=== PATIENT | female | born 1950 | race Caucasian/White ===

== ENCOUNTER 2020-01-19 06:55 | Observation (INO) ==
[~2020-01-19 06:55] MED LIST: Lactated Ringers 1000 ml BAG 1,000 ML IV SCH
[2020-01-19] MEDS ORDERED: ceFAZolin 2 GM PREMIX in ORs 2 GM/50 ML BAG ONE (07:08)
[2020-01-19] MEDS ORDERED: ROPIVACAINE 5 MG/ML 30 ML BTL (0.5%) ONE (07:18)
[2020-01-19] MEDS ORDERED: Midazolam 2 mg/2 ml VIAL 1 mg/ml 2 ml VIAL (2 mg) ONE (08:55)
[2020-01-19] MEDS ORDERED: Lidocaine 2% PF 5 ML VIAL ONE ×2 (08:56→09:11)
[2020-01-19] MEDS ORDERED: Dexmedetomidine 200 mcg/2 ml 2 ml VIAL (200 mcg) ONE (08:56)
[2020-01-19] MEDS ORDERED: fentaNYL 100 mcg/2 ml 50 MCG/ML VIAL ONE ×2 (09:10→10:17)
[2020-01-19] MEDS ORDERED: Propofol 10 MG/ML 20 ML BTL ONE (09:10)
[2020-01-19] MEDS ORDERED: Propofol 0 MG/0 ML BTL ONE (09:10)
[2020-01-19] MEDS ORDERED: Dexamethasone IV 4 MG/ML VIAL 1 ml VIAL ONE (09:47)
[2020-01-19] MEDS ORDERED: Rocuronium 50 mg VIAL 10 mg/ml 5 ml VIAL (50 mg) ONE (09:56)
[2020-01-19] MEDS ORDERED: EPHEDrine (Pressors) 50 MG/ML VIAL ONE (10:13)
[2020-01-19] MEDS ORDERED: HYDROmorphone 1 MG/1 ML SYRINGE ONE (10:18)
[2020-01-19] MEDS ORDERED: Naloxone 0.4 mg VIAL 0.4 mg/ml 1 ml VIAL IV PRN (10:23)
[2020-01-19] MEDS ORDERED: HYDROmorphone 1 MG/1 ML SYRINGE IV PRN (10:23)
[2020-01-19] MEDS ORDERED: DiMENhydriNATE IV 50 mg/ml 1 ml VIAL IV PUSH PRN (10:23)
[2020-01-19] MEDS ORDERED: oxyCODONE/Acetamin 5/325 mg TAB PO PRN (12:09)
[2020-01-19] MEDS ORDERED: diPHENhydraMINE 25 mg TAB PO PRN (12:09)
[2020-01-19] MEDS ORDERED: Ondansetron ODT 4 mg TAB 4 MG TAB PO PRN (12:09)
[2020-01-19] MEDS ORDERED: Magnesium Hydroxide LIQ 30 ML UDC PO PRN (12:09)
[2020-01-19] MEDS ORDERED: Morphine 2 MG/ML SYRINGE IV PRN (12:09)
[2020-01-19] MEDS ORDERED: Ondansetron 4 mg VIAL 2 MG/ML 2 ml VIAL IV PRN (12:09)
[2020-01-19] MEDS ORDERED: Lactulose 30 ml UDC PO PRN (12:09)
[2020-01-19] MEDS ORDERED: diPHENhydraMINE IV 50 MG/ML 1 ml VIAL (BENADRYL) IV PRN (12:09)
[2020-01-19] MEDS ORDERED: Bupivacaine 0.5% SDV PF 30ML VIAL ONE (13:11)
[2020-01-19] MEDS ORDERED: Ketamine HCL 50 mg/ml 10 ml VIAL (500 MG) ONE (13:26)
[2020-01-19] MEDS: oxyCODONE/Acetamin 5/325 mg TAB PO PRN (14:44)
[2020-01-19] MEDS: Lactated Ringers 1000 ml BAG 1,000 ML IV SCH ×2 (16:00→23:38)
[2020-01-19] MEDS: ceFAZolin 1 GM ADVAN(*) 1 GM in NS 0.9% 50 ML 50 ML IVPB SCH (17:49)
[2020-01-19] MEDS: Magnesium Hydroxide LIQ 30 ML UDC PO SCH (20:49)
[2020-01-20] MEDS ORDERED: Polyethylene Glycol 3350 17 GM PACKET PO PRN (00:01)
[2020-01-20] MEDS: oxyCODONE/Acetamin 5/325 mg TAB PO PRN ×3 (02:15→12:16)
[2020-01-20] MEDS: ceFAZolin 1 GM ADVAN(*) 1 GM in NS 0.9% 50 ML 50 ML IVPB SCH ×2 (02:15→10:18)
[2020-01-20 07:23] LABS: Hematocrit 35 % (35-47); Mean Platelet Volume 9.5 fL (7.4-10.4); Platelet Count 201 10^3/uL (150-450)
[2020-01-20 07:39] LABS: BUN/Creatinine Ratio 18.3 (8-20); Calcium 8.6 mg/dL (8.6-10.3); EGFR African American 83.2 (>60); EGFR Non-African American 68.7 (>60); Potassium 3.8 mmol/L (3.5-5.0)
[2020-01-20] MEDS: Magnesium Hydroxide LIQ 30 ML UDC PO SCH (08:36)
[2020-01-20 12:04] VITALS: BP 103/49
== END 2020-01-20 13:30 | disposition home or self-care (01) ==
LOC: SSU 06:55 → OR 06:55
PROVIDERS: ADMIT Orthopaedic Surgery Adult Reconstructive Orthopaedic Surgery; ATTEND Orthopaedic Surgery Adult Reconstructive Orthopaedic Surgery